=== PATIENT | female | born 1940 | race Caucasian/White ===

== ENCOUNTER 2022-02-14 11:51 | Outpatient (CLI) | payer MEDICARE ==
[~2022-02-14 11:51] MED LIST: Iopamidol 370 76% 100 ML VIAL ONE
== END 2022-02-14 11:52 | disposition home or self-care (01) ==
LOC: CSHCT 11:51
PROVIDERS: ATTEND Internal Medicine Cardiovascular Disease
DX: I65.23 Occlusion and stenosis of bilateral carotid arteries (principal); I70.90 Unspecified atherosclerosis
CPT/HCPCS: 70498; 82565; Q9967

== ENCOUNTER 2023-11-04 13:13 | Outpatient (CLI) | payer OTHER, BC | END 2023-11-04 13:14 | disposition home or self-care (01) | LOC: CSHMAMMO 13:13 | PROVIDERS: ATTEND Internal Medicine | DX: Z12.31 Encounter for screening mammogram for malignant neoplasm of breast (principal); Z80.3 Family history of malignant neoplasm of breast; Z85.89 Personal history of malignant neoplasm of other organs and systems | CPT/HCPCS: 77063; 77067 ==